=== PATIENT | female | born 1970 | race Caucasian/White ===

== ENCOUNTER → 2018-05-18 | Outpatient (CLI) | payer OTHER ==
--- NOTE | 2018-05-18 14:07 | Diagnostic Imaging Report ---
PROCEDURE:US RETROPERITONEAL ( KIDNEY ). COMPARISON:None. INDICATIONS:RECURRENT UTI'S TECHNIQUE: Wei-scale and color sonographic images of the bilateral kidneys and bladder where obtained in transverse and longitudinal planes. FINDINGS: RIGHT KIDNEY: 12.6 cm, cortex 1.2 cm Cysts: None Solid masses: None Stones: None Hydronephrosis: None Echogenicity: Normal LEFT KIDNEY: 13.8 cm, cortex 1.4 cm Cysts: None Solid masses: None Stones: None Hydronephrosis: Mild Echogenicity: Normal Bladder: No focal lesions. Mild circumferential bladder wall thickening. Bilateral ureteral jets identified. Incidental note is made of increase echogenicity of the visualized hepatic parenchyma. CONCLUSION: 1. Mild circumferential bladder wall thickening, which may be secondary to cystitis. No focal lesions. 2. Mild left hydronephrosis. Although no left renal calculi are identified, a distal left ureteral calculus could be considered as the cause, in the appropriate clinical setting. Consider noncontrast CT abdomen and pelvis if there is clinical concern for ureterolithiasis. 3. Hepatic steatosis. Bashir Burnett M.D. Dictated by: Bashir Burnett M.D. on 05/18/2018 at 14:11 Electronically approved by: Bashir Burnett M.D. on 05/18/2018 at 14:11
== END ==
LOC: US 12:13
PROVIDERS: ATTEND Urology
DX: R31.9 Hematuria, unspecified (principal); N39.0 Urinary tract infection, site not specified
CPT/HCPCS: 76770